=== PATIENT | male | born 1960 | race African-American/Black ===

== ENCOUNTER 2020-09-28 19:35 | Emergency (ER) | payer MEDICARE, MEDICAID ==
[~2020-09-28] VITALS: Ht 180.3 cm; Wt 82.0 kg
[~2020-09-28 19:35] MED LIST: ATOR10TA69 PO; CITA40TA11 PO; DIPH25CA83 PO; DIVA-75 PO; OMEP20TA2 PO
[2020-09-28] MEDS ORDERED: ASPIRIN 81MG TABLET PO ONE (20:15)
[2020-09-28 20:48] LABS: BASOPHILS % 0.8 % (0.0-2.0); HEMATOCRIT. 40.7 % (42.0-52.0); HEMOGLOBIN. 13.3 g/dL (14.0-18.0); LYMPHOCYTES % 28.4 % (20.0-50.0); MEAN CORPUSCULAR HEMOGLOBIN 28.6 pg (28.0-32.0); MEAN CORPUSCULAR VOLUME 87.1 fL (80.0-94.0); MEAN PLATELET VOLUME 9.2 fl (7.4-10.4); NEUTROPHILS % 55.8 % (40.0-76.0); PLATELET 197 x1000/uL (130-400); RED BLOOD CELL COUNT 4.67 mill/uL (4.7-6.1); RED CELL DISTRIBUTION WIDTH 13.7 % (11.6-14.6)
[2020-09-28 21:18] LABS: CHLORIDE 109 mEq/L (98-107)
[2020-09-28 21:21] LABS: ETHANOL BLOOD < 10 mg/dL
[2020-09-28 22:35] VITALS: BP 132/74
== END 2020-09-28 22:45 | disposition home or self-care (01) ==
LOC: ER 19:35
DX: R07.89 Other chest pain (principal); G40.909 Epilepsy, unspecified, not intractable, without status epilepticus; Z88.8 Allergy status to other drugs, medicaments and biological substances
CPT/HCPCS: 36415; 71045; 80053; 80320; 83880; 84484; 85025; 93005; 99285; G0480